=== PATIENT | female | born 2000 | race Two or more races ===

== ENCOUNTER 2024-01-16 15:23 | Emergency (ER) | payer OTHER ==
[~2024-01-16] VITALS: Ht 180.3 cm; Wt 63.5 kg
[2024-01-16 15:47] VITALS: BP 118/75; TEMP 98.1; O2SAT 98
== END 2024-01-16 15:57 | disposition home or self-care (01) ==
LOC: ER 15:39
DX: S30.1XXA Contusion of abdominal wall, initial encounter (principal); V43.92XA Unspecified car occupant injured in collision with other type car in traffic accident, initial encounter; Y93.89 Activity, other specified; Y92.488 Other paved roadways as the place of occurrence of the external cause; Y99.8 Other external cause status